=== PATIENT | male | born 1965 | race Caucasian/White ===

== ENCOUNTER 2016-10-21 11:30 | Outpatient (RCR) | payer OTHER ==
[~2016-10-21 11:30] MED LIST: AMOXICILLIN 8751 TAB PO; LORTAB 5/500 501 TAB PO; RELPAX
== END 2016-11-02 12:34 | disposition still patient (30) ==
LOC: WSOT 11:30
DX: M77.01 Medial epicondylitis, right elbow (principal)

== ENCOUNTER → 2016-12-11 | Outpatient (CLI) | payer OTHER | LOC: COL.RAD 12-07 08:30 | DX: M25.551 Pain in right hip (principal) | CPT/HCPCS: J3301; Q9967 ==

== ENCOUNTER → 2017-03-05 | Outpatient (CLI) | payer OTHER | LOC: COL.LAB 08:14 | DX: Z96.641 Presence of right artificial hip joint (principal) ==

== ENCOUNTER 2017-05-11 11:15 | Outpatient (RCR) | payer OTHER | END 2017-05-24 11:58 | disposition home or self-care (01) | LOC: WSPT 11:15 | DX: Z01.818 Encounter for other preprocedural examination (principal); M25.551 Pain in right hip ==

== ENCOUNTER → 2017-07-28 | Outpatient (CLI) | payer OTHER | LOC: COL.RAD 08:19 | DX: S43.431A Superior glenoid labrum lesion of right shoulder, initial encounter (principal); S43.491A Other sprain of right shoulder joint, initial encounter; X58.XXXA Exposure to other specified factors, initial encounter | CPT/HCPCS: A9585; Q9967 ==

== ENCOUNTER 2017-07-29 10:30 | Outpatient (RCR) | payer OTHER | END 2017-09-06 16:06 | disposition home or self-care (01) | LOC: WSPT 10:30 | DX: M25.511 Pain in right shoulder (principal) ==

== ENCOUNTER 2017-09-06 16:01 | Outpatient (RCR) | payer OTHER | END 2017-09-06 16:06 | disposition still patient (30) | LOC: WSC 16:01 → WSPT 16:01 → WSC 16:06 | DX: Z01.818 Encounter for other preprocedural examination (principal); M75.21 Bicipital tendinitis, right shoulder ==

== ENCOUNTER 2017-12-13 14:00 | Outpatient (RCR) | payer OTHER | END 2017-12-16 | disposition home or self-care (01) | LOC: WSPT | DX: Z47.89 Encounter for other orthopedic aftercare (principal); M75.21 Bicipital tendinitis, right shoulder ==

== ENCOUNTER 2018-01-31 16:45 | Outpatient (RCR) | payer OTHER | END 2018-03-17 | disposition home or self-care (01) | LOC: WSPT | DX: Z47.89 Encounter for other orthopedic aftercare (principal) ==

== ENCOUNTER → 2018-08-19 | Outpatient (CLI) | payer OTHER | LOC: COL.RAD 07:47 | DX: M51.16 Intervertebral disc disorders with radiculopathy, lumbar region (principal); M43.10 Spondylolisthesis, site unspecified; M48.061 Spinal stenosis, lumbar region without neurogenic claudication; M99.73 Connective tissue and disc stenosis of intervertebral foramina of lumbar region ==

== ENCOUNTER → 2019-05-11 | Outpatient (CLI) | payer OTHER | LOC: COL.RAD 07:54 | DX: G44.209 Tension-type headache, unspecified, not intractable (principal); J34.89 Other specified disorders of nose and nasal sinuses | CPT/HCPCS: Q9967 ==

== ENCOUNTER 2019-07-21 07:30 | Outpatient (RCR) | payer OTHER | END 2019-07-31 10:29 | disposition home or self-care (01) | LOC: WSPT 07:30 | DX: Z98.890 Other specified postprocedural states (principal) ==

== ENCOUNTER 2019-09-22 13:00 | Outpatient (RCR) | payer OTHER | END 2019-09-25 09:02 | disposition home or self-care (01) | LOC: WSPT 13:00 | DX: Z98.890 Other specified postprocedural states (principal) | CPT/HCPCS: G0283-GP ==

== ENCOUNTER 2020-09-13 14:30 | Outpatient (RCR) | payer OTHER | END 2020-10-07 | disposition home or self-care (01) | LOC: WSPT | DX: M79.671 Pain in right foot (principal) ==

== ENCOUNTER → 2022-07-23 | Outpatient (CLI) | payer OTHER | LOC: COL.RAD 12:08 | DX: M43.17 Spondylolisthesis, lumbosacral region (principal); M48.061 Spinal stenosis, lumbar region without neurogenic claudication; M48.07 Spinal stenosis, lumbosacral region; M54.10 Radiculopathy, site unspecified ==